=== PATIENT | female | born 1945 | race Caucasian/White ===

== ENCOUNTER 2020-02-27 00:59 | Outpatient (CLI) | payer MEDICARE, SELFPAY ==
[2020-02-27 19:00] LABS: SARS-CoV-2 RNA PCR Negative
== END 2020-02-27 01:00 | disposition home or self-care (01) ==
LOC: ANHCOVIDDT 01:05
PROVIDERS: PCP Internal Medicine; Visit Provider Internal Medicine Gastroenterology
DX: Z01.818 Encounter for other preprocedural examination (principal); Z11.59 Encounter for screening for other viral diseases
CPT/HCPCS: 87635; C9803; U0003

== ENCOUNTER 2020-02-29 03:47 | Day surgery (SDC) | payer MEDICARE, SELFPAY ==
[2020-02-21 15:00] VITALS: BMI 35.4
[2020-02-29 06:30] VITALS: BP 178/63; PULSE 55; RESP 16; TEMP 36.3; O2SAT 92
[2020-02-29 07:08] VITALS: BMI 36.8
--- NOTE | 2020-02-29 07:11 | P.PNAN_ITS ---
Anes - Initial Pre Proc Eval Procedure: Operation Date: 02/29/20 08:00 Proposed Procedures p Esophagogastroduodenoscopy - Dutch Bernal MD Date/Time: 02/29/20 07:11 Surgeon: Dutch Bernal MD Pre Op Diagnosis: dysphagia, GERD Patient Data Age: 74 Gender: F Height: 5 ft 2 in Weight: 88 kg Allergies Allergy/AdvReac Type Severity Reaction Status Date / Time No Known Allergies Allergy Verified 02/29/20 06:52 Home Medications Medication Instructions Recorded Confirmed Type Otc Laxative 1 dose PO DAILY 02/21/20 02/21/20 History aspirin [Adult Low Dose Aspirin] 81 mg PO DAILY 02/21/20 02/21/20 History atorvastatin 20 mg PO HS 02/21/20 02/21/20 History docusate sodium [Stool Softener] 100 mg PO DAILY 02/21/20 02/21/20 History omeprazole 20 mg PO HS 02/21/20 02/21/20 History verapamil 240 mg PO HS 02/21/20 02/21/20 History Patient hx anesthesia problems: none Family hx anesthesia problems: none [facility] Past Medical History Medical History (Updated 02/29/20 @ 07:11 by Asim English MD) HTN (hypertension) Hyperlipidemia Obesity Surgical History Surgical History (Updated 02/29/20 @ 07:12 by Asim English MD) S/P gastric surgery Anes - Eval Final PreProcedure Day of Procedure 02/29/20 07:11 Patient weight: obese Heart: regular rate and rhythm Lungs: clear to auscultation Airway: Mallampati scale class II Neurological: alert and oriented Last oral intake: >/= 8 hours ASA classification: III Emergent: no Anesthetic plan: proceed Anesthesia type and monitoring: general GIVS and standard monitoring Informed Consent: The patient's anesthetic plan and its attendant risks and benefits were discussed with the patient/family/POA. Questions were solicited and answers provided to the satisfaction of the patient/family/POA.
--- NOTE | 2020-02-29 07:13 | WPDGICN ---
Assessment and Plan Assessment and plan (1) Dysphagia: Code(s): R13.10 - Dysphagia, unspecified Status: Acute Assessment and Plan: Patient reports difficulty swallowing. 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 Plan is for EGD today. (2) GERD (gastroesophageal reflux disease): Code(s): K21.9 - Gastro-esophageal reflux disease without esophagitis Status: Acute Assessment and Plan: Patient with acid reflux symptoms previously controlled on ranitidine. Patient currently on omeprazole. Will assess the adequacy of this medicine at the time of endoscopy. GI Consult Note Consult date/time: 02/29/20 07:13 HPI: Tete Mauro is a 74 year old female seen in evaluation at the request of Saúl. Patient reports that when eating that food will catch in the mid substernal portion of the chest. This is worsened over the last 3 months. This occurs more often with solids more so than liquids. She does have a history of acid reflux. History of esophageal web dilated 1-2 years ago. She did well initially. Previously treated with ranitidine she stopped this medication because of concerns over cancer risk. She recently was restarted on omeprazole. Family history is noncontributory. Patient denies any bleeding or weight loss. Review of Systems Review of Systems: All systems reviewed & are unremarkable except as noted in HPI and below PMFSH Past Medical History Medical History HTN (hypertension) Hyperlipidemia Obesity Surgical History Surgical History S/P gastric surgery Meds Home Medications and Allergies Home Medications Medication Instructions Recorded Confirmed Type Otc Laxative 1 dose PO DAILY 02/21/20 02/21/20 History aspirin [Adult Low Dose Aspirin] 81 mg PO DAILY 02/21/20 02/21/20 History atorvastatin 20 mg PO HS 02/21/20 02/21/20 History docusate sodium [Stool Softener] 100 mg PO DAILY 02/21/20 02/21/20 History omeprazole 20 mg PO HS 02/21/20 02/21/20 History verapamil 240 mg PO HS 02/21/20 02/21/20 History Allergies Allergy/AdvReac Type Severity Reaction Status Date / Time No Known Allergies Allergy Verified 02/29/20 06:52 Exam Narrative: Exam Narrative: Physical exam reveals patient to be alert. Vital signs stable. HEENT exam unremarkable. Lungs are clear to auscultation and percussion. Heart is without murmur or extra sounds. Abdominal exam bowel sounds are present soft nontender with no organomegaly. Digital external rectal exam deferred today.
[2020-02-29] MEDS: LACTATED RINGERS 1,000 ML 150 ML IV CONT (07:16)
[2020-02-29 08:09] VITALS: BP 159/83; PULSE 56; RESP 16; O2SAT 98
[2020-02-29 08:19] VITALS: BP 184/83; PULSE 54; RESP 16; O2SAT 96
[2020-02-29 08:29] VITALS: BP 185/81; PULSE 54; RESP 16; O2SAT 95
== END 2020-02-29 08:42 | disposition home or self-care (01) ==
PROVIDERS: PCP Internal Medicine; Visit Provider Internal Medicine Gastroenterology
PROC: 0DJ08ZZ Inspection of Upper Intestinal Tract, Via Natural or Artificial Opening Endoscopic (ICD-10-PCS; CPT 43235; principal; 2020-02-29 08:00)
DX: Q39.4 Esophageal web (principal); K44.9 Diaphragmatic hernia without obstruction or gangrene; K21.9 Gastro-esophageal reflux disease without esophagitis; I10 Essential (primary) hypertension; E78.5 Hyperlipidemia, unspecified; E66.9 Obesity, unspecified; Z68.36 Body mass index [BMI] 36.0-36.9, adult
CPT/HCPCS: 43450; 43235; 87635; C9803; J2001; J2704; J7120; U0003

== ENCOUNTER 2020-07-28 08:35 | Outpatient (CLI) | payer MEDICARE, SELFPAY ==
--- NOTE | ~2020-07-28 | XR_ITS ---
EXAMINATION: XR UGIAC w barium swallow DATE: 07/28/2020 09:27 INDICATION: Epigastric pain TECHNIQUE: Thick barium contrast with gas effervescent crystals were administered orally. Fluoroscop ic images of the esophagus, stomach, and proximal duodenum were obtained in various projections. The reafter, overhead images of the abdomen were performed. 0.9 minutes minutes of fluroscopy. DAP 25.1. FINDINGS: No prior studies for comparison There are tertiary contractions of the esophagus, consistent with presbyesophagus. There is a small h iatal hernia with gastroesophageal reflux. The gastric folds are normal. The proximal duodenum is also normal in appearance. IMPRESSION: 1. Small hiatal hernia with gastroesophageal reflux. Reviewed, dictated and finalized at location A. [facility] [employer]
== END 2020-07-28 08:36 | disposition home or self-care (01) ==
LOC: ANHIMG 08:39
PROVIDERS: PCP Internal Medicine; Visit Provider Internal Medicine Gastroenterology
DX: R13.10 Dysphagia, unspecified (principal); R10.13 Epigastric pain; K44.9 Diaphragmatic hernia without obstruction or gangrene
CPT/HCPCS: 74246

== ENCOUNTER 2021-08-13 00:51 | Day surgery (SDC) | payer MEDICARE, SELFPAY ==
[2021-08-03 09:19] VITALS: BMI 35.9
--- NOTE | 2021-08-12 14:01 | WPDANESEPPF ---
Anes - Initial Pre Proc Eval Procedure: Operation Date: 08/13/21 10:45 Proposed Procedures p Esophagogastroduodenoscopy & Screening Colonoscopy - Dutch Bernal MD Date/Time: 08/12/21 14:01 Surgeon: Dutch Bernal MD Pre Op Diagnosis: hx of colon polyps, dysphagia Patient Data Age: 76 Gender: F Height: 1.57 m Weight: 89 kg Allergies Allergy/AdvReac Type Severity Reaction Status Date / Time No Known Allergies Allergy Verified 08/03/21 09:15 Home Medications Medication Instructions Recorded Confirmed Type aspirin [Adult Low Dose Aspirin] 81 mg PO DAILY 02/21/20 08/13/21 History atorvastatin 20 mg PO HS 02/21/20 08/13/21 History amlodipine 5 mg tablet 10 mg PO DAILY 07/08/21 08/13/21 History clopidogrel 75 mg tablet 75 mg PO DAILY 07/08/21 08/13/21 History lisinopril 5 mg tablet 5 mg PO DAILY 07/08/21 08/13/21 History pantoprazole 40 mg tablet,delayed 40 mg PO QAM 90 Days #90 tablet 07/08/21 08/13/21 Rx release ezetimibe 10 mg PO DAILY 08/13/21 08/13/21 History Patient hx anesthesia problems: none Family hx anesthesia problems: none Results Review: All pre-operative results and documents have been reviewed as part of the pre-operative evaluation. [facility] Past Medical History Medical History (Updated 08/13/21 @ 09:20 by Dutch Bernal MD) CAD (coronary artery disease) History of heart attack 09/2020 HTN (hypertension) Hyperlipidemia Obesity Surgical History Surgical History (Updated 08/12/21 @ 14:02 by Christopher Escalera DO) History of coronary artery stent placement S/P gastric surgery sleeve 2011 Social History Social History (Updated 07/08/21 @ 09:13 by Ysabel Bassett CMA) Smoking status: Never smoker Alcohol intake: former Substance use: never Substance use type: does not use Living arrangements: with family Spiritual care concerns: No Anes - Eval Final PreProcedure Day of Procedure 08/12/21 14:01 Patient weight: obese Heart: regular rate and rhythm Lungs: clear to auscultation and normal air movement Airway: Mallampati scale class 1 Neurological: alert and oriented Last oral intake: >/= 8 hours ASA classification: III Emergent: no Anesthetic plan: proceed Anesthesia type and monitoring: general GIVS and standard monitoring Results Review: All pre-operative results and documents have been reviewed as part of the pre-operative evaluation. Informed Consent: The patient's anesthetic plan and its attendant risks and benefits were discussed with the patient/family/POA. Questions were solicited and answers provided to the satisfaction of the patient/family/POA.
--- NOTE | 2021-08-13 09:18 | WPDGICN ---
Assessment and Plan Assessment and plan (1) History of colon polyps: Code(s): Z86.010 - Personal history of colonic polyps Status: Acute Assessment and Plan: Patient was found to have colon polyps in 2016. She presents today for surveillance colonoscopy. Continued colonoscopy at 5 year intervals is advised. (2) Dysphagia: Code(s): R13.10 - Dysphagia, unspecified Status: Acute Assessment and Plan: Patient has difficulty swallowing suggesting esophageal narrowing. Plan is for EGD today. If narrowing is present dilatation may be considered. Holding anticoagulation is prudent in anticipation of this. (3) GERD (gastroesophageal reflux disease): Code(s): K21.9 - Gastro-esophageal reflux disease without esophagitis Status: Acute Assessment and Plan: GE reflux appears stable currently on pantoprazole 40mg p.o. daily. Continued anti-reflux measures encourage. This may predispose her to narrowing of the esophagus for which she has dysphagia. (4) CAD (coronary artery disease): Code(s): I25.10 - Atherosclerotic heart disease of [place] coronary artery without angina pectoris Status: Inactive GI Consult Note Consult date/time: 08/13/21 09:18 HPI: Tete Mauro is a 76 year old female Presents for GI endoscopy. Patient complains of difficulty swallowing. Food will catch in the mid substernal portion of the chest. She denies any significant heartburn she has had no weight loss or bleeding. Patient currently on a trial of pantoprazole 40mg p.o. daily for possible acid reflux disease. An EGD will be planned to evaluate for narrowing in the esophagus. Patient also has a history of colon polyps. Most recently by Dr. Hughes in 2016. She presents today for follow-up colonoscopy as 5 years have elapsed. She denies any change in her bowel habits she has had no bleeding. Her bowel habits regular. Patient does have a history of myocardial infarction has been maintained on Plavix and this is held briefly in anticipation of GI endoscopy. Review of Systems Review of Systems: All systems reviewed & are unremarkable except as noted in HPI and below [facility] Past Medical History Medical History (Updated 08/13/21 @ 09:20 by Dutch Bernal MD) CAD (coronary artery disease) History of heart attack 09/2020 HTN (hypertension) Hyperlipidemia Obesity Surgical History Surgical History (Updated 08/12/21 @ 14:02 by Christopher Escalera DO) History of coronary artery stent placement S/P gastric surgery sleeve 2011 Social History Social History (Updated 07/08/21 @ 09:13 by Ysabel Bassett CMA) Smoking status: Never smoker Alcohol intake: former Substance use: never Substance use type: does not use Living arrangements: with family Spiritual care concerns: No Meds Home Medications and Allergies Home Medications Medication Instructions Recorded Confirmed Type aspirin [Adult Low Dose Aspirin] 81 mg PO DAILY 02/21/20 08/03/21 History atorvastatin 20 mg PO HS 02/21/20 08/03/21 History verapamil 240 mg PO HS 02/21/20 02/21/20 History amlodipine 5 mg tablet 10 mg PO DAILY 07/08/21 08/03/21 History clopidogrel 75 mg tablet 75 mg PO DAILY 07/08/21 08/03/21 History lisinopril 5 mg tablet 5 mg PO DAILY 07/08/21 08/03/21 History pantoprazole 40 mg tablet,delayed 40 mg PO QAM 90 Days #90 tablet 07/08/21 08/03/21 Rx release Allergies Allergy/AdvReac Type Severity Reaction Status Date / Time No Known Allergies Allergy Verified 08/03/21 09:15 Exam Narrative: Physical exam reveals patient to be alert. Vital signs stable. HEENT exam is unremarkable. Patient is anicteric. Lungs are clear to auscultation and percussion. Heart is without murmur or extra sounds. Abdominal exam bowel sounds present soft nontender with no organomegaly. Digital external rectal exam is normal.
[2021-08-13 09:30] VITALS: BP 144/75; PULSE 72; RESP 18; TEMP 36; O2SAT 96
[2021-08-13] MEDS: LACTATED RINGERS 1,000 ML 150 ML IV CONT (09:46)
[2021-08-13] MEDS: BENZOCAINE (*SP) 60 ML SPRAY CAN (HURRICAINE) 1 SPRAY MUCOUS MEM (10:32)
--- NOTE | 2021-08-13 10:40 | SUR.OPER ---
EGD end: 1036 COLONOSCOPY start: 104
[2021-08-13 10:44] VITALS: BP 130/72; PULSE 71; RESP 15; O2SAT 96
[2021-08-13 10:54] VITALS: BP 124/68; PULSE 66; RESP 18; O2SAT 96
[2021-08-13 11:04] VITALS: BP 135/75; PULSE 63; RESP 18; O2SAT 93
--- NOTE | 2021-08-13 11:09 | SUR.PHASEII ---
Rn called patient family and updated them on patient's status
== END 2021-08-13 11:16 | disposition home or self-care (01) ==
PROVIDERS: PCP Internal Medicine; Visit Provider Internal Medicine Gastroenterology
PROC: 0DJ08ZZ Inspection of Upper Intestinal Tract, Via Natural or Artificial Opening Endoscopic (ICD-10-PCS; CPT 43235; principal; 2021-08-13 10:45)
DX: Z12.11 Encounter for screening for malignant neoplasm of colon (principal); Z86.010 Personal history of colon polyps; K64.4 Residual hemorrhoidal skin tags; R13.19 Other dysphagia; K21.9 Gastro-esophageal reflux disease without esophagitis; I25.10 Atherosclerotic heart disease of native coronary artery without angina pectoris; I25.2 Old myocardial infarction; E78.5 Hyperlipidemia, unspecified; Z95.5 Presence of coronary angioplasty implant and graft; Z98.84 Bariatric surgery status; Z79.82 Long term (current) use of aspirin; E66.9 Obesity, unspecified; Z68.35 Body mass index [BMI] 35.0-35.9, adult
CPT/HCPCS: 43235; G0105; J2704; J7120

== ENCOUNTER 2021-08-28 09:04 | Outpatient (CLI) | payer MEDICARE, SELFPAY ==
--- NOTE | ~2021-08-28 | XR_ITS ---
EXAMINATION: XR barium swallow modified EXAM DATE: 08/28/2021 09:53 INDICATION: R13.10 - Dysphagia, unspecified . TECHNIQUE: Modified barium esophagram was performed by speech pathologist with radiologist Dr. Brad Meredith present to administered fluoroscopy. Speech pathologist administered barium in varying consis tencies as per speech pathologist documentation. This was recorded on tape. There was total fluorosc opic time of 0.7 minutes. The DAP for this procedure was 0.5 Gycm2. A total of 2 images sent to PAC S from the exam. FINDINGS: Oral stage: Adequate function. Pharyngeal phase: Adequate function. Laryngeal penetration: None. Aspiration: None. Laryngeal sensitivity: Present. IMPRESSION: Normal modified esophagram exam. Please refer to speech pathologist findings and specifi c feeding recommendations. Reviewed, dictated and finalized at location A. [facility] IMPRESSION: Normal modified esophagram exam. Please refer to speech pathologis t findings and specific feeding recommendations.
--- NOTE | 2021-08-28 09:56 | STOPEVAL ---
MODIFIED BARIUM SWALLOW EVALUATION: Thank you for referring Tete Mauro to [facility] [place] Attending Provider: Dutch Bernal MD Fax#: [phone] Modified Barium Swallow Evaluation Recent Swallowing History Reports Dysphagia No: reports GERD; no choking Reported Difficult Consistencies Unable to Identify Intake Method Prior to Swallow Oral Evaluation Diet Prior to Swallow Evaluation Regular, Level 7 Liquid Consistency Prior to Swallow Thin (0) Evaluation Consistency Solid Consistency Method of Presentation Spoon Oral Preparatory Symptoms None Oral Phase Symptoms None Pharyngeal Phase Symptoms None Severity of Vallecular Residue None - 0% No Residue Severity of Pyriform Sinus Residue None - 0% No Residue 8 Point Laryngeal Penetration-Aspiration Material Does Not Enter Airway Scale Cervical/Esophageal Symptoms None Mixed Consistency Method of Presentation Spoon Oral Preparatory Symptoms None Oral Phase Symptoms None Pharyngeal Phase Symptoms None Severity of Vallecular Residue None - 0% No Residue Severity of Pyriform Sinus Residue None - 0% No Residue 8 Point Laryngeal Penetration-Aspiration Material Does Not Enter Airway Scale Cervical/Esophageal Symptoms None Pureed Consistency Method of Presentation Spoon Oral Preparatory Symptoms None Oral Phase Symptoms None Pharyngeal Phase Symptoms None Severity of Vallecular Residue None - 0% No Residue Severity of Pyriform Sinus Residue None - 0% No Residue 8 Point Laryngeal Penetration-Aspiration Material Does Not Enter Airway Scale Cervical/Esophageal Symptoms None Thin Uncontrolled 2 Method of Presentation Straw Oral Preparatory Symptoms None Oral Phase Symptoms None Pharyngeal Phase Symptoms None Severity of Vallecular Residue None - 0% No Residue Severity of Pyriform Sinus Residue None - 0% No Residue 8 Point Laryngeal Penetration-Aspiration Material Does Not Enter Airway Scale Cervical/Esophageal Symptoms Within Functional Limits Thin Uncontrolled 1 Method of Presentation Cup Oral Preparatory Symptoms None Oral Phase Symptoms None Pharyngeal Phase Symptoms None Severity of Vallecular Residue None - 0% No Residue Severity of Pyriform Sinus Residue None - 0% No Residue 8 Point Laryngeal Penetration-Aspiration Material Does Not Enter Airway Scale Cervical/Esophageal Symptoms Within Functional Limits Thin 5 mL Method of Presentation Spoon Oral Preparatory Symptoms None Oral Phase Symptoms None Pharyngeal Phase Symptoms None Severity of Vallecular Residue None - 0% No Residue Severity of Pyriform Sinus Residue None - 0% No Residue 8 Point
== END 2021-08-28 09:05 | disposition home or self-care (01) ==
PROVIDERS: PCP Internal Medicine; Visit Provider Internal Medicine Gastroenterology
DX: R13.10 Dysphagia, unspecified (principal)
CPT/HCPCS: 92611

== ENCOUNTER 2021-11-30 01:00 | Day surgery (SDC) | payer MEDICARE, SELFPAY ==
[2021-11-23 15:28] VITALS: BMI 34.3
[2021-11-30 06:58] VITALS: BP 132/80; PULSE 68; RESP 20; TEMP 36.2; O2SAT 97; BMI 34.5
[2021-11-30] MEDS: LACTATED RINGERS 1,000 ML 150 ML IV CONT (07:10)
--- NOTE | 2021-11-30 07:14 | P.PNAN_ITS ---
Anes - Initial Pre Proc Eval Procedure: Operation Date: 11/30/21 08:00 Proposed Procedures p Screening Colonoscopy - Dutch Bernal MD Date/Time: 11/30/21 07:14 Surgeon: Dutch Bernal MD Pre Op Diagnosis: neoplasm screening Patient Data Age: 76 Gender: F Height: 1.57 m Weight: 85.7 kg Last Vital Signs Temp 36.2 C L 11/30/21 06:58 Pulse 68 11/30/21 06:58 Resp 20 11/30/21 06:58 BP 132/80 11/30/21 06:58 Pulse Ox 97 11/30/21 06:58 Allergies Allergy/AdvReac Type Severity Reaction Status Date / Time No Known Allergies Allergy Verified 11/30/21 06:57 Home Medications Medication Instructions Recorded Confirmed Type aspirin [Adult Low Dose Aspirin] 81 mg PO DAILY 02/21/20 11/23/21 History atorvastatin 20 mg PO HS 02/21/20 11/23/21 History pantoprazole 40 mg tablet,delayed 40 mg PO QAM 90 Days #90 tablet 07/08/21 11/23/21 Rx release ezetimibe 10 mg PO DAILY 08/13/21 11/23/21 History Adult Probiotic 1 cap PO DAILY 11/23/21 11/23/21 History amlodipine 10 mg PO DAILY 11/23/21 11/23/21 History cholecalciferol (vitamin D3) 100 mcg PO DAILY 11/23/21 11/23/21 History [Vitamin D3] lisinopril 40 mg PO DAILY 11/23/21 11/23/21 History magnesium 250 mg PO DAILY 11/23/21 11/23/21 History Patient hx anesthesia problems: none Family hx anesthesia problems: none Results Review: All pre-operative results and documents have been reviewed as part of the pre-operative evaluation. [facility] Past Medical History Medical History CAD (coronary artery disease) History of heart attack 09/2020 HTN (hypertension) Hyperlipidemia Obesity Surgical History Surgical History History of coronary artery stent placement S/P gastric surgery 2011 Social History Social History Smoking status: Never smoker Alcohol intake: never Substance use: never Substance use type: does not use Living arrangements: with family Spiritual care concerns: No Anes - Eval Final PreProcedure Day of Procedure 11/30/21 07:14 Patient weight: obese Heart: regular rate and rhythm Lungs: clear to auscultation Airway: Mallampati scale class 1 Neurological: alert and oriented Last oral intake: >/= 8 hours ASA classification: III Emergent: no Anesthetic plan: proceed Anesthesia type and monitoring: general GIVS and standard monitoring Results Review: All pre-operative results and documents have been reviewed as part of the pre-operative evaluation. Informed Consent: The patient's anesthetic plan and its attendant risks and benefits were discussed with the patient/family/POA. Questions were solicited and answers provided to the satisfaction of the patient/family/POA.
--- NOTE | 2021-11-30 07:57 | WPDGICN ---
Assessment and Plan Assessment and plan (1) History of colon polyps: Code(s): Z86.010 - Personal history of colonic polyps Status: Acute Assessment and Plan: Patient gives a prior history of colon polyps. Her family history is significant their son had colon polyps and aunt had colon cancer. Plan is for surveillance colonoscopy now consider this at intervals in the future. GI Consult Note Consult date/time: 11/30/21 07:57 HPI: Tete Mauro is a 76 year old female Presents for neoplasia screening. Patient's current weight appetite and bowel movements are normal. She denies abdominal pain. She has had no bleeding. Patient reports that her son was found to have colon polyps. An aunt had colon cancer. Patient reports that she may have had a colon polyp many years ago. She presents today for neoplasia screening. Review of Systems Review of Systems: All systems reviewed & are unremarkable except as noted in HPI and below PMFSH Past Medical History Medical History CAD (coronary artery disease) History of heart attack 09/2020 HTN (hypertension) Hyperlipidemia Obesity Surgical History Surgical History History of coronary artery stent placement S/P gastric surgery 2011 Social History Social History Smoking status: Never smoker Alcohol intake: never Substance use: never Substance use type: does not use Living arrangements: with family Spiritual care concerns: No Meds Home Medications and Allergies Home Medications Medication Instructions Recorded Confirmed Type aspirin [Adult Low Dose Aspirin] 81 mg PO DAILY 02/21/20 11/23/21 History atorvastatin 20 mg PO HS 02/21/20 11/23/21 History pantoprazole 40 mg tablet,delayed 40 mg PO QAM 90 Days #90 tablet 07/08/21 11/23/21 Rx release ezetimibe 10 mg PO DAILY 08/13/21 11/23/21 History Adult Probiotic 1 cap PO DAILY 11/23/21 11/23/21 History amlodipine 10 mg PO DAILY 11/23/21 11/23/21 History cholecalciferol (vitamin D3) 100 mcg PO DAILY 11/23/21 11/23/21 History [Vitamin D3] lisinopril 40 mg PO DAILY 11/23/21 11/23/21 History magnesium 250 mg PO DAILY 11/23/21 11/23/21 History Allergies Allergy/AdvReac Type Severity Reaction Status Date / Time No Known Allergies Allergy Verified 11/30/21 06:57 Vital Signs Vital Signs - 24 hr 11/30/21 06:58 Temperature 97.2 F L Pulse Rate 68 Respiratory Rate 20 Blood Pressure 132/80 Pulse Oximetry 97 Exam Narrative: Physical exam reveals patient to be alert. HEENT exam is unremarkable. Patient is anicteric. Lungs are clear to auscultation and percussion. Heart is without murmur or extra sounds. Abdominal exam bowel sounds are present soft nontender with no organomegaly. Digital external rectal exam is normal.
[2021-11-30 08:31] VITALS: BP 98/57; PULSE 60; RESP 15; O2SAT 96
[2021-11-30 08:41] VITALS: BP 112/65; PULSE 59; RESP 18; O2SAT 96
[2021-11-30 08:51] VITALS: BP 120/68; PULSE 60; RESP 25; O2SAT 99
== END 2021-11-30 09:02 | disposition home or self-care (01) ==
PROVIDERS: PCP Internal Medicine; Visit Provider Internal Medicine Gastroenterology
PROC: 0DJD8ZZ Inspection of Lower Intestinal Tract, Via Natural or Artificial Opening Endoscopic (ICD-10-PCS; CPT 45378; principal; 2021-11-30 08:00)
DX: Z12.11 Encounter for screening for malignant neoplasm of colon (principal); D12.2 Benign neoplasm of ascending colon; K57.30 Diverticulosis of large intestine without perforation or abscess without bleeding; Z83.71 Family history of colonic polyps; I25.10 Atherosclerotic heart disease of native coronary artery without angina pectoris; I10 Essential (primary) hypertension; I25.2 Old myocardial infarction; E78.5 Hyperlipidemia, unspecified; E66.9 Obesity, unspecified; Z68.34 Body mass index [BMI] 34.0-34.9, adult; Z95.5 Presence of coronary angioplasty implant and graft; Z98.84 Bariatric surgery status; Z79.82 Long term (current) use of aspirin
CPT/HCPCS: 45385; 88305; J2704; J7120

== ENCOUNTER 2024-05-29 12:53 | Emergency (ER) | payer MEDICARE, SELFPAY ==
--- NOTE | ~2024-05-29 | XR_ITS ---
EXAMINATION: XR elbow RT min 3V DATE: 05/29/2024 15:20 INDICATION: Right elbow pain. TECHNIQUE: 4 views of right elbow were obtained. COMPARISON: None. FINDINGS: Alignment is normal. No fracture. Joint spaces are normal. No elbow joint effusion. IMPRESSION: 1. Normal right elbow. Reviewed, dictated and finalized at location A. IMPRESSION: 1. Normal right elbow.
--- NOTE | ~2024-05-29 | XR_ITS ---
EXAMINATION: XR shoulder RT min 2V DATE: 05/29/2024 15:20 INDICATION: Right shoulder pain. TECHNIQUE: 4 views of right shoulder were obtained. COMPARISON: Right shoulder radiographs 05/04/2024 FINDINGS: Alignment is normal. No fracture. There is mild osteoarthritis of glenohumeral joint and se lico osteoarthritis of acromioclavicular joint. Calcified right lung nodules are consistent with old granulomatous disease. IMPRESSION: 1. Polyarticular osteoarthritis. Reviewed, dictated and finalized at location A.
[2024-05-29 12:58] VITALS: BP 145/53; PULSE 55; RESP 16; TEMP 36.2; O2SAT 99
--- NOTE | 2024-05-29 14:34 | ED.GENADULT ---
HPI - General Adult General Chief complaint: Unspecified Stated complaint: right shoulder pain Time Seen by Provider: 05/29/24 14:01 History of Present Illness HPI narrative: Patient is a 78-year-old female who presents to the ER with right shoulder pain. She reports she has an orthopedic surgeon who has given her a cortisone shot in that shoulder for to treat her osteoarthritis. Patient reports her pain improved 3 to 4 days after the cortisone injection, but yesterday she lifted something with her right arm and felt intense pain that radiates from her right shoulder down to her right wrist. She also endorses right elbow pain. Patient reports the pain is worse when she to move her arm or lift something. She reports she tried to get in to see her orthopedic surgeon but he was booked out for months. Patient denies any signs/symptoms of chest pain, shortness a breath, numbness or tingling, or illness. Related Data Home Medications Medication Instructions Recorded Confirmed aspirin 81 mg tablet,delayed 81 mg PO DAILY 02/21/20 11/23/21 release (Adult Low Dose Aspirin) atorvastatin 20 mg tablet 20 mg PO HS 02/21/20 11/23/21 ezetimibe 10 mg tablet 10 mg PO DAILY 08/13/21 11/23/21 Adult Probiotic 1 cap PO DAILY 11/23/21 11/23/21 amlodipine 10 mg tablet 10 mg PO DAILY 11/23/21 11/23/21 cholecalciferol (vitamin D3) 50 100 mcg PO DAILY 11/23/21 11/23/21 mcg (2,000 unit) tablet (Vitamin D3) lisinopril 40 mg tablet 40 mg PO DAILY 11/23/21 11/23/21 magnesium 250 mg tablet 250 mg PO DAILY 11/23/21 11/23/21 Allergies Allergy/AdvReac Type Severity Reaction Status Date / Time No Known Allergies Allergy Verified 05/04/24 08:18 Review of Systems Review of Systems: All systems reviewed & are unremarkable except as noted in HPI and below PMFSH Past Medical History Medical History CAD (coronary artery disease) History of heart attack 09/2020 HTN (hypertension) Hyperlipidemia Obesity Surgical History Surgical History History of coronary artery stent placement S/P gastric surgery sleeve 2011 Family History Family History Other Diabetes mellitus Heart disease Hyperlipidemia Hypertension Thyroid cancer Social History Social History Smoking status: Never smoker Second hand tobacco smoke exposure: Yes Alcohol intake: never Substance use: never Substance use type: does not use Do You Feel Safe in your Home?: Yes Lack of Transportation: No Lack of Food: Never True Current Housing: I Have Housing Concerned About Future Housing: Decline to Answer Difficulty Paying Gas/Electric Bills: Decline to Answer Difficulty Paying for Meds: Decline to Answer Currently Unemployed: Decline to Answer Education: Decline to Answer Difficulty w/ Childcare or Family Care: Decline to Answer Living arrangements: with family Occupation/Education: retired 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 Gender identity (if verbalized by the patient): Female Spiritual care concerns: No Course Vital Signs Vital signs: Vital Signs Temperature 36.2 C L 05/29/24 12:58 Pulse Rate 55 L 05/29/24 12:58 Respiratory Rate 16 05/29/24 12:58 Blood Pressure 145/53 H 05/29/24 12:58 Pulse Oximetry 99 05/29/24 12:58 Oxygen Delivery Room Air 05/29/24 12:58 Temperature 36.2 C L 05/29/24 12:58 Pulse Rate 55 L 05/29/24 12:58 Respiratory Rate 16 05/29/24 12:58 Blood Pressure 145/53 H 05/29/24 12:58 Pulse Oximetry 99 05/29/24 12:58 Oxygen Delivery Room Air 05/29/24 12:58 Medical Decision Making MDM Narrative Medical decision making narrative: Patient is a 78-year-old female who presents to the ER wi
[2024-05-29] MEDS: methylPREDNISolone SOD SUCC 125 MG VIAL IM (14:48)
[2024-05-29] MEDS: KETOROLAC (*BKC) 60 MG/2 ML VIAL IM (14:48)
--- NOTE | 2024-05-30 17:37 | ED.GENADULT ---
HPI - General Adult General Chief complaint: Unspecified Stated complaint: right shoulder pain Time Seen by Provider: 05/29/24 14:01 Related Data Home Medications Medication Instructions Recorded Confirmed aspirin 81 mg tablet,delayed 81 mg PO DAILY 02/21/20 11/23/21 release (Adult Low Dose Aspirin) atorvastatin 20 mg tablet 20 mg PO HS 02/21/20 11/23/21 ezetimibe 10 mg tablet 10 mg PO DAILY 08/13/21 11/23/21 Adult Probiotic 1 cap PO DAILY 11/23/21 11/23/21 amlodipine 10 mg tablet 10 mg PO DAILY 11/23/21 11/23/21 cholecalciferol (vitamin D3) 50 100 mcg PO DAILY 11/23/21 11/23/21 mcg (2,000 unit) tablet (Vitamin D3) lisinopril 40 mg tablet 40 mg PO DAILY 11/23/21 11/23/21 magnesium 250 mg tablet 250 mg PO DAILY 11/23/21 11/23/21 Allergies Allergy/AdvReac Type Severity Reaction Status Date / Time No Known Allergies Allergy Verified 05/04/24 08:18 [facility] Past Medical History Medical History CAD (coronary artery disease) History of heart attack 09/2020 HTN (hypertension) Hyperlipidemia Obesity Surgical History Surgical History History of coronary artery stent placement S/P gastric surgery sleeve 2011 Family History Family History Other Diabetes mellitus Heart disease Hyperlipidemia Hypertension Thyroid cancer Social History Social History Smoking status: Never smoker Second hand tobacco smoke exposure: Yes Alcohol intake: never Substance use: never Substance use type: does not use Do You Feel Safe in your Home?: Yes Lack of Transportation: No Lack of Food: Never True Current Housing: I Have Housing Concerned About Future Housing: Decline to Answer Difficulty Paying Gas/Electric Bills: Decline to Answer Difficulty Paying for Meds: Decline to Answer Currently Unemployed: Decline to Answer Education: Decline to Answer Difficulty w/ Childcare or Family Care: Decline to Answer Living arrangements: with family Occupation/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 HEAD: Normocephalic, atraumatic. NECK: Supple. No adenopathy, no masses. RESPIRATORY: Airway patent, respirations nonlabored. Clear to auscultation bilaterally, no rales, rhonchi, wheezing. CARDIOVASCULAR: Regular rate and rhythm without murmurs, rubs, or gallops. Peripheral pulses 2+ and equal bilaterally. ABDOMINAL: Soft, nontender, nondistended, no hepatosplenomegaly. Normoactive BS. MUSCULOSKELETAL: Moves all extremities. Strength/ROM intact without gross deformities. Patient endorses tenderness with external rotation SKIN: Warm, dry, normal color. No rashes. NEURO: A&O X3. Speech clear. Cranial nerves II-XII grossly intact. Steady gait. No ataxic movements. PSYCHIATRIC: Appropriate mood and affect. Normal interaction. Course Vital Signs Vital signs: Vital Signs Temperature 36.2 C L 05/29/24 12:58 Pulse Rate 55 L 05/29/24 12:58 Respiratory Rate 16 05/29/24 12:58 Blood Pressure 145/53 H 05/29/24 12:58 Pulse Oximetry 99 05/29/24 12:58 Oxygen Delivery Room Air 05/29/24 12:58 Temperature 36.2 C L 05/29/24 12:58 Pulse Rate 55 L 05/29/24 12:58 Respiratory Rate 16 05/29/24 12:58 Blood Pressure 145/53 H 05/29/24 12:58 Pulse Oximetry 99 05/29/24 12:58 Oxygen Delivery Room Air 05/29/24 12:58 Medical Decision Making Vital Signs Vital Signs: Vital Signs Temperature 36.2 C L 05/29/24 12:58 Pulse Rate 55 L 05/29/24 12:58 Respiratory Rate 16 05/29/24 12:58 Blood Pressure 145/53 H 05/29/24 12:
== END 2024-05-29 15:55 | disposition home or self-care (01) ==
PROVIDERS: Emergency Provider Registered Nurse; PCP Internal Medicine
DX: M25.511 Pain in right shoulder (principal); M19.90 Unspecified osteoarthritis, unspecified site; I25.10 Atherosclerotic heart disease of native coronary artery without angina pectoris; I25.2 Old myocardial infarction; I10 Essential (primary) hypertension; E78.5 Hyperlipidemia, unspecified
CPT/HCPCS: 73030; 73080; 96372; 99284; J1885; J2919

== ENCOUNTER 2024-08-09 11:42 | Emergency (ER) | payer MEDICARE, SELFPAY ==
--- NOTE | ~2024-08-09 | XR_ITS ---
XR knee RT min 4V Ordering provider: Josefina Pro APRN History: . RT knee pain since last night, hit on toilet. hx arthritis . Comparison: None. FINDINGS: BONES: No acute fracture or dislocation. JOINT SPACES: Severe Narrowing of the medial compartment. SOFT TISSUES: Normal. IMPRESSION: No acute osseous abnormality right knee. Severe osteoarthritic changes. Reviewed, dictated and finalized at location A. OM [employer]
[2024-08-09 11:51] VITALS: BP 140/62; PULSE 57; RESP 20; TEMP 36; O2SAT 98
--- NOTE | 2024-08-09 12:29 | ED_ITS ---
HPI - Extremity Injury (Lower) General Chief Complaint: Extremity Injury, Lower Stated Complaint: rt knee pain Time Seen by Provider: 08/09/24 12:41 Source: patient, RN notes reviewed and old records reviewed Mode of arrival: ambulatory Limitations: no limitations History of Present Illness HPI Narrative: 79-year-old female presents to the [facility] with complaints of right knee pain after bumping it and middle the night. Patient reports that she bumped her knee on the toilet in middle the night. Did take some acetaminophen. Pain with bending. Pain with walking. Does have a cane she walks with. Related Data Home Medications ?Medication ?Instructions ?Recorded ?Confirmed ?Last Taken ?Type aspirin 81 mg tablet,delayed 81 mg PO DAILY 02/21/20 08/09/24 11/29/21 History release (Adult Low Dose Aspirin) atorvastatin 20 mg tablet 20 mg PO HS 02/21/20 08/09/24 11/29/21 History ezetimibe 10 mg tablet 10 mg PO DAILY 08/13/21 08/09/24 11/29/21 History Adult Probiotic 1 cap PO DAILY 11/23/21 08/09/24 11/29/21 History amlodipine 10 mg tablet 10 mg PO DAILY 11/23/21 08/09/24 11/29/21 History cholecalciferol (vitamin D3) 50 100 mcg PO DAILY 11/23/21 08/09/24 11/29/21 History mcg (2,000 unit) tablet (Vitamin D3) lisinopril 40 mg tablet 40 mg PO DAILY 11/23/21 08/09/24 11/29/21 History magnesium 250 mg tablet 250 mg PO DAILY 11/23/21 08/09/24 11/29/21 History apixaban 5 mg tablet (Eliquis) mg 08/09/24 Unknown History trazodone 100 mg tablet mg 08/09/24 Unknown History Allergies Allergy/AdvReac Type Severity Reaction Status Date / Time No Known Allergies Allergy Verified 08/09/24 11:58 Review of Systems Review of Systems: All systems reviewed & are unremarkable except as noted in HPI and below Constitutional: Constitutional: Reports no additional constitutional complaints ENT: Reports system reviewed and no additional complaints, except as documented Cardiovascular: Cardiovascular: Reports no additional cardiovascular complaints, Denies chest pain and Denies dyspnea Respiratory: Respiratory: Reports no additional respiratory complaints, Denies chest congestion, Denies cough and Denies dyspnea Musculoskeletal: Musculoskeletal: Reports as per HPI and Reports arthralgias (Right knee) Integumentary/Breasts: Skin/Breast: Reports system reviewed and no additional complaints, except as docu PMFSH Past Medical History Medical History CAD (coronary artery disease) History of heart attack 09/2020 Hyperlipidemia HTN (hypertension) Obesity Surgical History Surgical History History of coronary artery stent placement S/P gastric surgery sleeve 2011 Family History Family History Other Diabetes mellitus Heart disease Hyperlipidemia Hypertension Thyroid cancer Social History Social History Smoking status: Never smoker Second hand tobacco smoke exposure: Yes Alcohol intake: never Substance use: never Substance use type: does not use Do You Feel Safe in your Home?: Yes Lack of Transportation: No Lack of Food: Never True Current Housing: I Have Housing Concerned About Future Housing: Decline to Answer Difficulty Paying Gas/Electric Bills: Decline to Answer Difficulty Paying for Meds: Decline to Answer Currently Unemployed: Decline to Answer Education: Decline to Answer Difficulty w/ Childcare or Family Care: Decline to Answer Living arrangements: with family 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 There is no relevant family history pertinent to the patient complaint. Exam Const: General: cooperative, healthy appearing, comfortable, no acute distress, well developed, alert and well nourished Nutritional Appearance: well nourished and obese Orientation/consciousness: patient oriented x3 Limitations: no limitations HENMT: Head: normal to inspection Face and sinus: normal facial exam and face symmetric Eyes: General: appearance normal, both eyes and all related structures Neck: Neck: normal visual inspection, full ROM, no lymphadenopathy and no meningeal signs Chest: Chest palpation & inspection: normal inspection of the chest Resp: Effort & Inspection: normal respiratory effort and able to speak in complete sentences Cardio: Rate: regular rate Skin: General skin exam: normal color and no rashes or lesions noted Neuro: General: patient oriented x3, No gait normal, moves all extremities and no meningeal signs Cognition (Neuro): normal cognition Speech: normal speech Gait exam (Neuro): Normal gait present Extrem: General: normal to inspection, full ROM, capillary refill normal and normal gait Right lower extremity: knee Details: tenderness (Generalized anterior knee) and abnormal ROM Details: pain with active ROM during and lower leg Details: normal to inspection and no edema; no tenderness and no localized swelling Psych: Appearance: grossly normal and well kempt Mental Status: mental status grossly normal Speech and movement: Normal speech and movement present and Clear speech present Affect: normal affect Attitude: cooperative Course Course Level of Care: Express Care Visit Vital Signs Vital signs: Vital Signs Temperature 96.8 F L 08/09/24 11:51 Pulse Rate 57 L 08/09/24 11:51 Respiratory Rate 20 08/09/24 11:51 Blood Pressure 140/62 08/09/24 11:51 Pulse Oximetry 98 08/09/24 11:51 Oxygen Delivery Room Air 08/09/24 11:51 Temperature 96.8 F L 08/09/24 11:51 Pulse Rate 57 L 08/09/24 11:51 Respiratory Rate 20 08/09/24 11:51 Blood Pressure 140/62 08/09/24 11:51 Pulse Oximetry 98 08/09/24 11:51 Oxygen Delivery Room Air 08/09/24 11:51 Reviewed MDM - Extremity Injury (Lower) MDM Narrative Medical decision making narrative: Patient sitting comfortably in exam room. Nontoxic, vitals stable. Patient presents for right knee pain after hitting it on the toilet. Has taken Tylenol. Mild swelling noted without ecchymosis, erythema. Pain with movement. X-rays negative Patient appropriate for outpatient treatment of knee contusion with close follow-up Discharge instructions reviewed with patient, as well as provided in writing per nursing staff. The instructions also include specific and strict return/GO TO THE ER as well as f/u information. All questions have been answered, and the patient deny any further questions with discharge and discharge plan. Some parts of this dictation were generated by voice recognition software and may contain typographical and/or grammatical inaccuracies. Differential Diagnosis Differential diagnosis: Likely other (Knee fracture, knee contusion, knee sprain) Imaging Data Radiologist's impression: XR knee RT min 4V Ordering provider: Josefina Pro APRN History: . RT knee pain since last night, hit on toilet. hx arthritis . Comparison: None. FINDINGS: BONES: No acute fracture or dislocation. JOINT SPACES: Severe Narrowing of the medial compartment. SOFT TISSUES: Normal. IMPRESSION: No acute osseous abnormality right knee. Severe osteoarthritic changes. Critical Care Time Critical Care Time Critical Care Time: No Discharge Plan Discharge Clinical Impression: Effusion of knee joint right Contusion of knee, right Qualifiers: Encounter type: initial encounter Qualified Code(s): S80.01XA - Contusion of right knee, initial encounter Patient Disposition: Home, Self-Care Condition: Stable Instructions: Antibiotic Form, Contusion in Children (DC), Swollen Knee Joint (ED) Additional Instructions: Your Xray did not show a fracture. Ice should be applied to help reduce swelling. It can be used for 20 to 30 minutes, every 2-3 hours while awake. Do not apply ice directly to your skin. An Isidro wrap can help support your injured knee. You can take Tylenol 650mg every 8 hours as needed for pain Please schedule a follow-up visit with your personal physician for further evaluation and treatment within 2 weeks especially if symptoms persist. For new or worsening symptoms go directly to the emergency room Patient Language: Indonesian Prescriptions: No Action trazodone 100 mg tablet Eliquis 5 mg tablet atorvastatin 20 mg tablet 20 mg PO HS aspirin [Adult Low Dose Aspirin] 81 mg Tablet,Delayed Release (Dr/Ec) 81 mg PO DAILY ezetimibe 10 mg tablet 10 mg PO DAILY amlodipine 10 mg tablet 10 mg PO DAILY lisinopril 40 mg tablet 40 mg PO DAILY Adult Probiotic 1 cap PO DAILY magnesium 250 mg Tablet 250 mg PO DAILY cholecalciferol (vitamin D3) [Vitamin D3] 50 mcg (2,000 unit) Tablet 100 mcg PO DAILY pantoprazole 40 mg tablet,delayed release (DR/EC) See Rx Instructions .ROUTE .COMPLEX Qty: 90 0RF Dose Instruction: TAKE 1 TABLET BY MOUTH EVERY MORNING Rx Instructions: TAKE 1 TABLET BY MOUTH EVERY MORNING Follow-up/Referrals: Saúl,MD Ole [Primary Care Provider] - Time of Disposition: 12:50
== END 2024-08-09 13:05 | disposition home or self-care (01) ==
PROVIDERS: Emergency Provider Nurse Practitioner; PCP Internal Medicine
DX: M25.461 Effusion, right knee (principal); S80.01XA Contusion of right knee, initial encounter; W22.8XXA Striking against or struck by other objects, initial encounter; I25.10 Atherosclerotic heart disease of native coronary artery without angina pectoris; I10 Essential (primary) hypertension; E78.5 Hyperlipidemia, unspecified; E66.9 Obesity, unspecified; Z68.37 Body mass index [BMI] 37.0-37.9, adult; I25.2 Old myocardial infarction; Z95.5 Presence of coronary angioplasty implant and graft; Z98.84 Bariatric surgery status; Z79.01 Long term (current) use of anticoagulants
CPT/HCPCS: 73564; 99213; G0463